=== PATIENT | female | born 1995 | race Caucasian/White ===

== ENCOUNTER 2022-04-29 13:51 | Emergency (ER) | payer MEDICAID, SELFPAY ==
[2022-04-29 13:52] VITALS: BP 158/81; PULSE 123; RESP 16; TEMP 37.2; O2SAT 98; BMI 31.8
[2022-04-29 14:35] LABS: Bacteria 0 SEEN /hpf (None Seen); Mucous, Urine 0 SEEN /hpf (<or=2+); Red Blood Cells-Urine 0 SEEN /hpf (0-5); White Blood Cells 0 SEEN /hpf (0-5)
[2022-04-29 14:37] LABS: Absolute Lymphocyte Count 2.74 X10^3/uL (0.83-4.51); Absolute Neutrophil Count 9.5 X10^3/uL (2.0-7.7); Basophil# 0.03 X10^3/uL; Basophil% 0.2 % (0-1); Eosinophil# 0.05 X10^3/uL; Eosinophils% 0.4 % (0-5); Hemoglobin 12.2 g/dL (12.0-15.0); Lymphocyte # 2.74 X10^3/ul (0.83-4.51); Mean Corpuscular Hgb 25.2 pg (27.0-32.0); Mean Corpuscular Volume 76.4 fL (81-99); Monocyte# 0.72 X10^3/uL; Monocyte% 5.5 % (0-10); NRBC Flagged by Analyzer 0 % (0-5); Neutrophil # 9.45 X10^3/uL (2.7-7.7); Neutrophil % 72.3 % (47-70); Platelet Count 286 K/mm3 (150-450); RBC Distribution Width SD 43.2 fl (35.1-43.9); Red Blood Count 4.84 M/mm3 (4.2-5.4); White Blood Count 13.1 K/mm3 (4.4-11.0)
[2022-04-29 14:38] LABS: Glucose, Dipstick Normal (Normal); Ketone-Dipstick Negative (Negative); Leukocyte Esterase-Dipstick Negative /ul (Negative); Nitrite-Dipstick Negative (Negative); Occult Blood-Urine Negative /ul (Negative); Protein-Dipstick Negative (Negative); Specific Gravity, Urine 1.015 (1.002-1.030); Urine Bilirubin Dipstick Negative (Negative); Urine Urobilinogen Normal (Normal)
--- NOTE | 2022-04-29 14:38 | EX.ED.DYSGE1 ---
HPI History of Present Illness Chief Complaint: Abd Pain Detail of Chief Complaint: Patient complains abdominal pain with, nausea vomiting and diarrhea started Informant: patient Onset/Context/Timing Onset: Weeks Context: Sudden Onset Timing: Intermittent Quality: Generalized pain Location: Abdomen Current Severity: Mild Maximum Severity: Moderate Worsened by: Vomiting and diarrhea Relieved by: Nothing Associated Symptoms Associated Symptoms: Nothing Narrative Narrative: Patient is a 26-year-old G4, P3 woman who presents with generalized abdominal pain with nausea, vomiting and diarrhea. This started approximately a week ago. She states her last was complicated by preeclampsia. She is presently seen at the care center, which is affiliated with [facility]. She states she has an appointment this coming Thursday with [facility]. She states she had an ultrasound through the clinic. She states by dates she is 14 weeks gestation. She does report generalized headache. She denies double vision, blurred vision loss of vision. She denies trouble with speech or swallowing. Denies ringing in ears or decreased hearing. She denies trouble with speech or swallowing. She denies cardiac symptoms. She does report shortness of breath since the beginning of . She also states that her face becomes flushed. She denies back pain. She does report polyuria and polydipsia. She has a past history of gestational diabetes. She denies dysuria or hematuria. She denies vaginal bleeding or discharge. Prior similar symptoms: Yes Recent Illness/Hospitalization: No [facility] Medical History (Updated 04/29/22 @ 15:[address] Montana Tracy MD) Anxiety Depression Ovarian cyst Preeclampsia Home Medications cephalexin 500 mg capsule (Keflex) 500 mg PO [id number] ##28 10/25/16 [Rx Last Taken Unknown] sulfamethoxazole 800 mg-trimethoprim 160 mg tablet 1 tab PO BID ##14 10/25/16 [Rx Last Taken Unknown] Allergy/AdvReac Type Severity Reaction Status Date / Time No Known Allergies Allergy Verified 04/29/22 13:52 Social History (Updated 04/29/22 @ 14:[address] Montana Tracy MD) household members: children and other details: Recently moved from [place]. Care was at the [facility]. Smoking Status: Former smoker substance use type: former substance user ROS ROS ED Constitutional Constitutional ED: Denies chills, fever(s), subjective, sweats or weight loss Eyes Eyes: Denies blurry vision, change in vision or diplopia ENT ENT ED: Denies ear pain, rhinorrhea or sore throat Cardiovascular Cardiovascular: Denies chest pain, orthopnea, palpitations, paroxysmal nocturnal dyspnea or racing heartbeat Respiratory/Chest Respiratory/Chest: Denies cough, dyspnea, dyspnea on exertion, orthopnea or paroxysmal nocturnal dyspnea Gastrointestinal Gastrointestinal: Reports abdominal pain, diarrhea, nausea and vomiting; Denies constipation or melena Genitourinary Genitourinary ED: Reports urinary frequency; Denies dysuria or hematuria Musculoskeletal Musculoskeletal: Denies arthralgias, back pain, myalgias or neck pain Integumentary Denies Abrasions or rash Neurologic Neurologic: Reports headache(s); Denies paresthesias or weakness Psychiatric Psychiatric: Denies anxiety or depression Endocrine Endocrinology: Reports polydipsia and polyuria Hematologic/Lymphatic Hematologic/Lymphatic: Reports systems reviewed and no addt'l complaints, except as documented EXAM Physical Exam Const Vital Signs: 04/29/22 13:52 Temperature 98.9 F Temperature Source Temporal Pulse Rate 123 H Respiratory Rate 16 Blood Pressure 158/81 H Blood Pressure Mean 106 Pulse Ox 98 Oxygen Delivery Method Room Air Positive well nourished, well developed and unkempt General Appearance ED: unkempt, well developed and NAD; Negative for cyanotic, diaphoretic or pallor HEENT Reports moist mucous membranes HEENT Narrative: Head is atraumatic normocephalic. Ears normal. TMs normal. Nares patent. There is piercing the nose. Uvula is midline. There is no deviation tongue or protrusion. There is no erythema or exudate of the posterior pharynx. Eyes PERRL and EOMs intact bilaterally Eyes Narrative: There is no nystagmus. There is no evidence of papilledema. There is no AV nicking. General Eye ED: Negative for pale conjunctiva or scleral icterus Neck no lymphadenopathy, supple and no JVD Resp normal respiratory effort and clear to auscultation bilaterally Cardio regular rhythm, S1 normal heart sound, S2 normal heart sound and no murmurs Rate: tachycardic GI normal to inspection, nondistended, normoactive bowel sounds, non-tender and non-distended; Negative for hepatosplenomegaly GI Narrative: Fundal height is approximately 4-5 fingerbreadths below the umbilicus. Palpation: soft Back/Spine no CVA tenderness Cervical Spine: Negative for cervical spine tenderness Thoracic Spine / Upper Back: Negative for thoracic spinal tenderness Lumbar Spine / Lower Back: Negative for lumbar spinal tenderness Extremity normal to inspection Extremity Narrative: There is no pedal edema. Neuro oriented x3, CN's II-XII intact bilaterally and no sensory deficits noted Neuro Narrative: Patient has brisk reflexes. Brachioradialis, bicep, tricep, patella and ankle are 4+. There is no clonus or Babinski sign noted. Sensorium / Orientation: alert Motor Exam: strength 5/5 throughout Psych Appearance: unkempt Mood & Affect: Negative for depressed or anxious Skin no rashes or lesions noted, no wounds and skin turgor normal General Skin Exam: Negative for jaundice or pallor MDM MDM MDM Narrative Medical decision making narrative: With complaint of polyuria and polydipsia and history of gestational diabetes we will obtain a PGT M BMP to assess glucose, anion gap and CO2. Because of reported diarrhea we will also assess for hypokalemia. CBC was obtained as part of the work-up for -induced hypertension since she is hyperreflexic. Liver profile, coags, UA and uric acid level were obtained. We will monitor patient's blood pressure. She was placed on a monitor if her heart rate is truly 123 will obtain EKG to see if there is any evidence to suggest dysrhythmia or findings suggest preexcitation syndrome such as WPW or Tanner long Ganong syndrome etc. Because her neuro exam is nonfocal even though she complains of headache a CT of the head was not obtained also to minimize radiation exposure. There is no record of ultrasound for this . Records from using [employer] were not available. She did have blood work which indicates that her A1c was 6.2. TSH was less than 0.01. Free thyroxine is elevated at 2.44 with upper end of normal 1.12. Patient's tox screen was positive for cannabis. In light of laboratory results from outside facility need to consider hyperthyroidism since patient is tachycardic with hyperreflexia and elevated blood pressure. Spoke with Dr. Elizabeth Tong. She recommends follow-up with endocrinology. They will follow her with regards to . She is to call the office for appointment in 1 to [address] Constantino Ryan. She requested patient be discharged be seen at her office. She would like the patient at her office by 1615. Lab Data Attestation: I reviewed the patient's lab results. Lab results narrative: White count is slightly elevated with normal differential. Comprehensive metabolic panel is unremarkable. UA is negative with no proteinuria or hematuria glucose is normal with a normal CO2 and anion gap. The elevated white count can be a result of hyperthyroidism. Also may be due to the fact that she is , second trimester. Labs: Laboratory Results - last 24 hr 04/29/22 04/29/22 04/29/22 14:25 14:30 14:30 WBC RBC Hgb Hct MCV MCH MCHC RDW Std Deviation RDW Coeff of Donny Plt Count MPV Immature Gran % (Auto) Neut % (Auto) Lymph % (Auto) [place] % (Auto) Eos % (Auto) Baso % (Auto) Absolute Neuts (auto) Absolute Lymphs (auto) Nucleated RBC % PT 13.6 INR 1.1 APTT 24.1 Sodium 137 Potassium 3.8 Chloride 106 Carbon Dioxide 25.0 Anion Gap 6 BUN 7 Creatinine 0.50 L Estim Creat Clear Calc 136.04 Est GFR (MDRD) Af Amer 192 Est GFR (MDRD) Non-Af 158 BUN/Creatinine Ratio 14.0 Glucose 104 Uric Acid 3.1 Calcium 9.0 Total Bilirubin 0.20 Direct Bilirubin 0.08 AST 13 L ALT 12 L Alkaline Phosphatase 59 Total Protein 7.1 Albumin 3.0 L Globulin 4.1 Urine Color Yellow Urine Clarity Clear Urine pH 7.0 Ur Specific [place] 1.015 Urine Protein Negative Urine Glucose (UA) Normal Urine Ketones Negative Urine Occult Blood Negative Urine Nitrite Negative Urine Bilirubin Negative Urine Urobilinogen Normal Ur Leukocyte Esterase Negative Urine RBC 0 SEEN Urine WBC 0 SEEN Ur Squamous Epith Cells 0-5 SEEN Urine Bacteria 0 SEEN Urine Mucus 0 SEEN POC Glucose 04/29/22 04/29/22 14:30 14:38 WBC 13.1 H RBC 4.84 Hgb 12.2 Hct 37.0 MCV 76.4 L MCH 25.2 L MCHC 33.0 RDW Std Deviation 43.2 RDW Coeff of Donny 16.0 H Plt Count 286 MPV 9.0 Immature Gran % (Auto) 0.600 Neut % (Auto) 72.3 H Lymph % (Auto) 21.0 [place] % (Auto) 5.5 Eos % (Auto) 0.4 Baso % (Auto) 0.2 Absolute Neuts (auto) 9.5 H Absolute Lymphs (auto) 2.74 Nucleated RBC % 0 PT INR APTT Sodium Potassium Chloride Carbon Dioxide Anion Gap BUN Creatinine Estim Creat Clear Calc Est GFR (MDRD) Af Amer Est GFR (MDRD) Non-Af BUN/Creatinine Ratio Glucose Uric Acid Calcium Total Bilirubin Direct Bilirubin AST ALT Alkaline Phosphatase Total Protein Albumin Globulin Urine Color Urine Clarity Urine pH Ur Specific [place] Urine Protein Urine Glucose (UA) Urine Ketones Urine Occult Blood Urine Nitrite Urine Bilirubin Urine Urobilinogen Ur Leukocyte Esterase Urine RBC Urine WBC Ur Squamous Epith Cells Urine Bacteria Urine Mucus POC Glucose 104 Rhythm Strip Rhythm Strip: Sinus Tach Rate: 115 Ectopy: None Discharge Plan Triage Chief Complaint: Abd Pain ED Provider: Montana Tracy Dx/Rx/DC Orders Clinical Impression: Hyperthyroidism affecting , Hypertension affecting , Diarrhea, Sinus tachycardia Instructions: ED Hyperthyroidism Prescriptions: No Action sulfamethoxazole-trimethoprim 1 TABLET tablet 1 tab PO BID Qty: 14 0RF Label Comments: prescribed from ED cephalexin [Keflex] 500 MG capsule 500 mg PO [id number] Qty: 28 0RF Label Comments: prescribed from ED Primary Care Provider: Humberto Ugarte Referrals: Humberto Ugarte DO [Primary Care Provider] - Constantino Ryan MD [Med Staff - Courtesy Staff] - As soon as possible Activity Restrictions/Additional Instructions: Go directly to Dr. Ryan's office for visit to treat your hyperthyroidism. Disposition Disposition: Home, Self Care
[2022-04-29 14:43] LABS: Color, Urine Yellow (Yellow); Urine Clarity Clear (Clear)
[2022-04-29 14:46] LABS: Squamous Epithelial Cells - UA 0-5 SEEN /hpf (5-10)
[2022-04-29 14:53] LABS: AST(SGOT) 13 U/L (15-37); Alanine Aminotransfer ALT/SGPT 12 U/L (13-56); Alkaline Phosphatase 59 U/L (45-117); Anion Gap 6 (5-15); BUN 7 mg/dL (7-18); Bilirubin, Direct 0.08 mg/dL (0.00-0.30); Chloride 106 mmol/L (98-107); EST Glomerular Filtration Rate 158 mL/min (>60); Est Glom Filt Rate - Afr Amer 192 mL/min (>60); Estimated Creatinine Clearance 136.04 ml/min; Globulin 4.1 g/dL (2.2-4.2); Glucose 104 mg/dL (74-106); Potassium 3.8 mmol/L (3.5-5.1); Protein, Total 7.1 g/dL (6.4-8.2); Sodium Level 137 mmol/L (136-145); Uric Acid 3.1 mg/dL (2.6-6.0)
[2022-04-29 14:56] LABS: Bedside Glucose 104 mg/dL (74-106)
[2022-04-29] MEDS: Ondansetron 4 MG/2 ML Vial IV (14:59)
[2022-04-29 15:04] LABS: International Normalized Ratio 1.1; Partial Thromboplast Time 24.1 Seconds (24.1-36.2); Prothrombin Time (Protime)PT. 13.6 SECONDS (11.7-14.9)
[2022-04-29 15:55] VITALS: BP 141/74; O2SAT 99
[2022-04-29 17:32] LABS: Free T3 5.7 pg/mL (2.18-3.98); Thyroid Stim Hormone (TSH) < 0.01 uIU/mL (0.358-3.74)
== END 2022-04-29 15:59 | disposition home or self-care (01) ==
PROVIDERS: Internal Medicine Endocrinology, Diabetes & Metabolism; Emergency Provider Emergency Medicine; PCP Family Medicine; Visit Provider Emergency Medicine
DX: O99.282 Endocrine, nutritional and metabolic diseases complicating pregnancy, second trimester (principal); O26.892 Other specified pregnancy related conditions, second trimester; R00.0 Tachycardia, unspecified; O16.2 Unspecified maternal hypertension, second trimester; E05.90 Thyrotoxicosis, unspecified without thyrotoxic crisis or storm; Z87.891 Personal history of nicotine dependence
CPT/HCPCS: 80048; 80076; 81001; 82962; 84439; 84443; 84481; 84550; 85025; 85610; 85730; 99284; A4216; J2405